=== PATIENT | female | born 1990 | race Caucasian/White ===

== ENCOUNTER 2021-01-03 22:28 | Inpatient (IN) | payer OTHER ==
[2021-01-03] MEDS ORDERED: SODIUM CHLORIDE 0.9% 2,000 ML IV STA (22:32)
--- NOTE | 2021-01-03 22:35 | ED ---
Overdose HPI - General Stated Complaint: Unresponsive Time Seen by Provider: 01/03/21 22:31 Source: RN notes reviewed, old records reviewed - History of Present Illness Complaint: intentional overdose -: hour(s) Intent: suicide attempt, want to go to sleep, want to escape How Overdose Was Discovered: family/friend present at time Context: Intentional Overdose: drug/ETOH problems Associated Symptoms: depression Treatments Prior to Arrival: none - Related Data Home Medications Medication Instructions Recorded Confirmed No Known Home Medications 01/04/21 01/04/21 Allergies Allergy/AdvReac Type Severity Reaction Status Date / Time No Known Allergies Allergy Verified 07/16/14 09:07 Review of Systems ROS Statement: Those systems with pertinent positive or pertinent negative responses have been documented in the HPI. ROS Other: All systems not noted in ROS Statement are negative. Past Medical History Past Medical History: No Reported History History of Any Multi-Drug Resistant Organisms: None Reported Past Surgical History: Section, Tubal Ligation Past Psychological History: Depression Past Alcohol Use History: None Reported Past Drug Use History: None Reported General Exam Limitations: altered mental status, physical limitation General appearance: anxious, lethargic, in distress Head exam: Present: atraumatic, normocephalic, normal inspection Eye exam: Present: normal appearance, PERRL, EOMI. Absent: scleral icterus, conjunctival injection, periorbital swelling ENT exam: Present: normal exam, mucous membranes moist Neck exam: Present: normal inspection. Absent: tenderness, meningismus, lymphadenopathy Respiratory exam: Present: normal lung sounds bilaterally. Absent: respiratory distress, wheezes, rales, rhonchi, stridor Cardiovascular Exam: Present: normal rhythm, tachycardia, normal heart sounds. Absent: systolic murmur, diastolic murmur, rubs, gallop, clicks GI/Abdominal exam: Present: soft, normal bowel sounds. Absent: distended, tenderness, guarding, rebound, rigid Extremities exam: Present: normal inspection, full ROM, normal capillary refill. Absent: tenderness, pedal edema, joint swelling, calf tenderness Back exam: Present: normal inspection Neurological exam: Present: alert, oriented X3, CN II-XII intact Psychiatric exam: Present: normal affect, normal mood Skin exam: Present: warm, dry, intact, normal color. Absent: rash Course Vital Signs 01/03/21 01/03/21 01/04/21 22:29 23:30 01:08 Temperature 97.6 F 97.5 F L Pulse Rate 137 H 105 H 115 H Respiratory 18 23 10 L Rate Blood Pressure 139/80 135/85 132/87 O2 Sat by Pulse 96 98 99 Oximetry 01/04/21 01:38 Temperature 97.5 F L Pulse Rate 115 H Respiratory 16 Rate Blood Pressure 137/99 O2 Sat by Pulse 98 Oximetry - Reevaluation(s) Reevaluation #1: 01/04/21 Medical record is reviewed Patient symptoms are persistent throughout ER stay Patient is remains in significant distress will need to be admitted for monitoring Conditional mild improvement in arouse ability prior to bed placement Patient informed results questions answered Medical Decision Making - Lab Data Result diagrams: 01/04/21 18:49 01/04/21 18:49 Lab Results 01/03/21 01/03/21 01/03/21 Range/Units 22:38 22:38 22:38 WBC 12.7 H (3.8-10.6) k/uL RBC 4.76 (3.80-5.40) m/uL Hgb 14.7 (11.4-16.0) gm/dL Hct 43.9 (34.0-46.0) % MCV 92.3 (80.0-100.0) fL MCH 30.9 (25.0-35.0) pg MCHC 33.5 (31.0-37.0) g/dL RDW 12.3 (11.5-15.5) % Plt Count 374 (150-450) k/uL MPV 9.0 Neutrophils % 64 % Lymphocytes % 27 % Monocytes % 3 % Eosinophils % 3 % Basophils % 0 % Neutrophils # 8.1 H (1.3-7.7) k/uL Lymphocytes # 3.5 (1.0-4.8) k/uL Monocytes # 0.4 (0-1.0) k/uL Eosinophils # 0.4 (0-0.7) k/uL Basophils # 0.1 (0-0.2) k/uL VBG pH (7.31-7.41) VBG pCO2 (37-51) mmHg VBG HCO3 (24-28) mmol/L Sodium (137-145) mmol/L Potassium (3.5-5.1) mmol/L Chloride (98-107) mmol/L Carbon Dioxide (22-30) mmol/L Anion Gap mmol/L BUN (7-17) mg/dL Creatinine (0.52-1.04) mg/dL Est GFR (CKD-EPI)AfAm (>60 ml/min/1.73 sqM) Est GFR (CKD-EPI)NonAf (>60 ml/min/1.73 sqM) Glucose (74-99) mg/dL Lactic Ac Sepsis Rflx Plasma Lactic Acid Khoi (0.7-2.0) mmol/L Calcium (8.4-10.2) mg/dL Phosphorus (2.5-4.5) mg/dL Magnesium (1.6-2.3) mg/dL Total Bilirubin (0.2-1.3) mg/dL AST (14-36) U/L ALT (4-34) U/L Alkaline Phosphatase (38-126) U/L Ammonia (<30) umol/L Creatine Kinase (30-135) U/L Troponin I (0.000-0.034) ng/mL Total Protein (6.3-8.2) g/dL Albumin (3.5-5.0) g/dL Lipase (23-300) U/L Urine HCG, Qual Not Detected (Not Detectd) Salicylates mg/dL Urine Opiates Screen Not Detected (NotDetected) Ur Oxycodone Screen Not Detected (NotDetected) Urine Methadone Screen Not Detected (NotDetected) Ur Propoxyphene Screen Not Detected (NotDetected) Acetaminophen ug/mL Ur Barbiturates Screen Not Detected (NotDetected) U Tricyclic Antidepress Detected H (NotDetected) Ur Phencyclidine Scrn Not Detected (NotDetected) Ur Amphetamines Screen Detected H (NotDetected) U Methamphetamines Scrn Not Detected (NotDetected) U Benzodiazepines Scrn Not Detected (NotDetected) Urine Cocaine Screen Not Detected (NotDetected) U Marijuana (THC) Screen Not Detected (NotDetected) Serum Alcohol mg/dL 01/03/21 01/03/21 01/03/21 Range/Units 22:38 22:38 22:38 WBC (3.8-10.6) k/uL RBC (3.80-5.40) m/uL Hgb (11.4-16.0) gm/dL Hct (34.0-46.0) % MCV (80.0-100.0) fL MCH (25.0-35.0) pg MCHC (31.0-37.0) g/dL RDW (11.5-15.5) % Plt Count (150-450) k/uL MPV Neutrophils % % Lymphocytes % % Monocytes % % Eosinophils % % Basophils % % Neutrophils # (1.3-7.7) k/uL Lymphocytes # (1.0-4.8) k/uL Monocytes # (0-1.0) k/uL Eosinophils # (0-0.7) k/uL Basophils # (0-0.2) k/uL VBG pH (7.31-7.41) VBG pCO2 (37-51) mmHg VBG HCO3 (24-28) mmol/L Sodium 140 (137-145) mmol/L Potassium 3.9 (3.5-5.1) mmol/L Chloride 107 (98-107) mmol/L Carbon Dioxide 12 L (22-30) mmol/L Anion Gap 21 mmol/L BUN 8 (7-17) mg/dL Creatinine 0.69 (0.52-1.04) mg/dL Est GFR (CKD-EPI)AfAm >90 (>60 ml/min/1.73 sqM) Est GFR (CKD-EPI)NonAf >90 (>60 ml/min/1.73 sqM) Glucose 94 (74-99) mg/dL Lactic Ac Sepsis Rflx Plasma Lactic Acid Khoi 10.6 H* (0.7-2.0) mmol/L Calcium 9.6 (8.4-10.2) mg/dL Phosphorus 2.4 L (2.5-4.5) mg/dL Magnesium 2.3 (1.6-2.3) mg/dL Total Bilirubin 0.2 (0.2-1.3) mg/dL AST 25 (14-36) U/L ALT 21 (4-34) U/L Alkaline Phosphatase 54 (38-126) U/L Ammonia 17 (<30) umol/L Creatine Kinase 105 (30-135) U/L Troponin I <0.012 (0.000-0.034) ng/mL Total Protein 7.8 (6.3-8.2) g/dL Albumin 5.0 (3.5-5.0) g/dL Lipase 40 (23-300) U/L Urine HCG, Qual (Not Detectd) Salicylates <1.0 mg/dL Urine Opiates Screen (NotDetected) Ur Oxycodone Screen (NotDetected) Urine Methadone Screen (NotDetected) Ur Propoxyphene Screen (NotDetected) Acetaminophen <10.0 ug/mL Ur Barbiturates Screen (NotDetected) U Tricyclic Antidepress (NotDetected) Ur Phencyclidine Scrn (NotDetected) Ur Amphetamines Screen (NotDetected) U Methamphetamines Scrn (NotDetected) U Benzodiazepines Scrn (NotDetected) Urine Cocaine Screen (NotDetected) U Marijuana (THC) Screen (NotDetected) Serum Alcohol <10 mg/dL 01/03/21 01/03/21 Range/Units 23:04 23:24 WBC (3.8-10.6) k/uL RBC (3.80-5.40) m/uL Hgb (11.4-16.0) gm/dL Hct (34.0-46.0) % MCV (80.0-100.0) fL MCH (25.0-35.0) pg MCHC (31.0-37.0) g/dL RDW (11.5-15.5) % Plt Count (150-450) k/uL MPV Neutrophils % % Lymphocytes % % Monocytes % % Eosinophils % % Basophils % % Neutrophils # (1.3-7.7) k/uL Lymphocytes # (1.0-4.8) k/uL Monocytes # (0-1.0) k/uL Eosinophils # (0-0.7) k/uL Basophils # (0-0.2) k/uL VBG pH 7.25 L (7.31-7.41) VBG pCO2 34 L (37-51) mmHg VBG HCO3 14 L (24-28) mmol/L Sodium (137-145) mmol/L Potassium (3.5-5.1) mmol/L Chloride (98-107) mmol/L Carbon Dioxide (22-30) mmol/L Anion Gap mmol/L BUN (7-17) mg/dL Creatinine (0.52-1.04) mg/dL Est GFR (CKD-EPI)AfAm (>60 ml/min/1.73 sqM) Est GFR (CKD-EPI)NonAf (>60 ml/min/1.73 sqM) Glucose (74-99) mg/dL Lactic Ac Sepsis Rflx Y Plasma Lactic Acid Khoi (0.7-2.0) mmol/L Calcium (8.4-10.2) mg/dL Phosphorus (2.5-4.5) mg/dL Magnesium (1.6-2.3) mg/dL Total Bilirubin (0.2-1.3) mg/dL AST (14-36) U/L ALT (4-34) U/L Alkaline Phosphatase (38-126) U/L Ammonia (<30) umol/L Creatine Kinase (30-135) U/L Troponin I (0.000-0.034) ng/mL Total Protein (6.3-8.2) g/dL Albumin (3.5-5.0) g/dL Lipase (23-300) U/L Urine HCG, Qual (Not Detectd) Salicylates mg/dL Urine Opiates Screen (NotDetected) Ur Oxycodone Screen (NotDetected) Urine Methadone Screen (NotDetected) Ur Propoxyphene Screen (NotDetected) Acetaminophen ug/mL Ur Barbiturates Screen (NotDetected) U Tricyclic Antidepress (NotDetected) Ur Phencyclidine Scrn (NotDetected) Ur Amphetamines Screen (NotDetected) U Methamphetamines Scrn (NotDetected) U Benzodiazepines Scrn (NotDetected) Urine Cocaine Screen (NotDetected) U Marijuana (THC) Screen (NotDetected) Serum Alcohol mg/dL - EKG Data -: EKG Interpreted by Me (EKG shows sinus tachycardia 134 IN 140 QRS 80 QTc 567) Critical Care Time Critical Care Time: Yes Total Critical Care Time: 31 Disposition Clinical Impression: Drug overdose, Suicide attempt by multiple drug overdose, Anticholinergic drug overdose Disposition: ADMITTED IP TO THIS [facility] Condition: Serious Is patient prescribed a controlled substance at d/c from ED?: No
[2021-01-03 22:51] LABS: Basophils # (A) 0.1 k/uL (0-0.2); Basophils % (A) 0 %; Eosinophils # (A) 0.4 k/uL (0-0.7); Eosinophils % (A) 3 %; HCT 43.9 % (34.0-46.0); HGB 14.7 gm/dL (11.4-16.0); Lymphocytes # (A) 3.5 k/uL (1.0-4.8); Lymphocytes % (A) 27 %; MCH 30.9 pg (25.0-35.0); MCHC 33.5 g/dL (31.0-37.0); MCV 92.3 fL (80.0-100.0); Monocytes # (A) 0.4 k/uL (0-1.0); Monocytes % (A) 3 %; Neutrophils # (A) 8.1 k/uL (1.3-7.7); Neutrophils % (A) 64 %; Platelet Count 374 k/uL (150-450); RBC 4.76 m/uL (3.80-5.40); RDW 12.3 % (11.5-15.5); WBC 12.7 k/uL (3.8-10.6)
[2021-01-03 23:10] LABS: ALT 21 U/L (4-34); AST 25 U/L (14-36); Acetaminophen <10.0 ug/mL; African American GFR (CKD) >90 (>60 ml/min/1.73 sqM); Alcohol <10 mg/dL; Alkaline Phosphatase 54 U/L (38-126); Anion Gap 21 mmol/L; Blood Urea Nitrogen 8 mg/dL (7-17); Calcium 9.6 mg/dL (8.4-10.2); Carbon Dioxide 12 mmol/L (22-30); Chloride 107 mmol/L (98-107); Creatine Kinase 105 U/L (30-135); Glucose 94 mg/dL (74-99); Lipase 40 U/L (23-300); Magnesium 2.3 mg/dL (1.6-2.3); Non-African American GFR(CKD) >90 (>60 ml/min/1.73 sqM); Phosphorus 2.4 mg/dL (2.5-4.5); Potassium 3.9 mmol/L (3.5-5.1); Salicylate <1.0 mg/dL; Sodium 140 mmol/L (137-145); Total Bilirubin 0.2 mg/dL (0.2-1.3); Total Protein 7.8 g/dL (6.3-8.2)
[2021-01-03 23:11] LABS: VBG PH 7.25 (7.31-7.41)
[2021-01-03 23:23] LABS: Lactic Acid, Venous 10.6 mmol/L (0.7-2.0)
[2021-01-03 23:24] LABS: Amphetamine Screen,Urine Detected (NotDetected); Barbiturate Screen,Urine Not Detected (NotDetected); Benzodiazepines Screen,Urine Not Detected (NotDetected); Cocaine Screen,Urine Not Detected (NotDetected); Methadone Screen, Urine Not Detected (NotDetected); Opiate Screen,Urine Not Detected (NotDetected); Oxycodone Screen, Urine Not Detected (NotDetected); Phencyclidine Screen,Urine Not Detected (NotDetected); Tricyclic Antidepressant,Urine Detected (NotDetected); Urn Cannabinoid Scrn Not Detected (NotDetected)
[2021-01-04] MEDS ORDERED: NALOXONE 0.4 MG/ML 1 ML VIAL IV PRN (00:10)
[2021-01-04] MEDS ORDERED: SODIUM BICARB 8.4% 50 ML SYR (1 MEQ/ML) IV STA ×2 (00:14)
[2021-01-04] MEDS ORDERED: POTASSIUM CHLORIDE 20 MEQ in WATER FOR INJECTION 1 100ML.BAG IVPB STA (00:15)
[2021-01-04] MEDS: SODIUM PHOSPHATE 10 MMOL in SODIUM CHLORIDE 0.9% 250 ML IVPB SCH ×3 (00:41→05:45)
[2021-01-04] MEDS: SODIUM CHLORIDE 0.9% 1,000 ML IV SCH ×3 (00:44→16:57)
[2021-01-04] MEDS ORDERED: LORazepam 2 MG/ML INJ IV PRN (00:52)
--- NOTE | 2021-01-04 13:12 | HP ---
HISTORY AND PHYSICAL CHIEF COMPLAINT: Drug ingestion and overdose with depression and suicidal intent. HISTORY OF PRESENT ILLNESS: This is the first known admission for this 30-year-old white female. She has not been in the office since 2013. She apparently overdosed on Unisom. She stated that she is chronically depressed and wanted to . REVIEW OF SYSTEMS: She denies any headaches, visual changes, chest pain, cough, shortness of breath, heart disease, hypertension, abdominal pain, nausea, vomiting, diarrhea, melena, hematochezia, renal failure, frequency, urgency and dysuria, nocturia, incontinence, diabetes, etc. Past medical history, family history, personal and social histories are otherwise unremarkable and noncontributory. She is apparently not taking any medication. She is not allergic to any. She apparently is not a smoker or drinker. PHYSICAL EXAMINATION: Blood pressure is 124/86, pulse 60, respirations 16. She is afebrile. In general, she appeared to be slightly overweight. She was slightly lethargic, but oriented. Skin color is normal. Skin is warm, dry. Head, ears, eyes, nose, mouth and throat were normal except for dilated pupils. Neck is supple. Chest is clear. Cardiac exam is normal. Abdomen is soft, nontender. Extremities: Normal. Neurologically she is intact. IMPRESSION: She is admitted to the hospital with diagnoses: 1. Overdose of Unisom. 2. Major depression. 3. Suicidal personality. PLAN: 1. Bedrest. 2. IV fluids. 3. Suicide precautions. 4. Psych consult. MMODL / IJN: [id number] /
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
[2021-01-04 19:19] LABS: HCT 35.5 % (34.0-46.0); HGB 12.4 gm/dL (11.4-16.0); MCHC 34.9 g/dL (31.0-37.0); MCV 91.6 fL (80.0-100.0); Mean Platelet Volume 9.1; Platelet Count 244 k/uL (150-450); RBC 3.87 m/uL (3.80-5.40); RDW 12.4 % (11.5-15.5); WBC 13.7 k/uL (3.8-10.6)
[2021-01-04 19:23] LABS: ALT 14 U/L (4-34); AST 16 U/L (14-36); African American GFR (CKD) >90 (>60 ml/min/1.73 sqM); Albumin 3.4 g/dL (3.5-5.0); Alkaline Phosphatase 45 U/L (38-126); Anion Gap 7 mmol/L; Blood Urea Nitrogen 3 mg/dL (7-17); Calcium 8.2 mg/dL (8.4-10.2); Carbon Dioxide 21 mmol/L (22-30); Chloride 111 mmol/L (98-107); Glucose 65 mg/dL (74-99); Magnesium 2.1 mg/dL (1.6-2.3); Non-African American GFR(CKD) >90 (>60 ml/min/1.73 sqM); Potassium 3.5 mmol/L (3.5-5.1); Sodium 139 mmol/L (137-145); Total Bilirubin 0.2 mg/dL (0.2-1.3); Total Protein 5.8 g/dL (6.3-8.2)
[2021-01-04] MEDS: POTASSIUM CHLORIDE ER 20 MEQ TAB.ER PO SCH ×2 (21:56→23:48)
[2021-01-04] MEDS: CALCIUM CARBONATE 500 MG CHEWABLE PO SCH (21:56)
[2021-01-05] MEDS: SODIUM CHLORIDE 0.9% 1,000 ML IV SCH ×3 (02:11→16:24)
[2021-01-05 08:04] LABS: Basophils # (A) 0.1 k/uL (0-0.2); Basophils % (A) 0 %; Eosinophils # (A) 0.1 k/uL (0-0.7); Eosinophils % (A) 1 %; HCT 36.6 % (34.0-46.0); HGB 12.1 gm/dL (11.4-16.0); Lymphocytes # (A) 1.9 k/uL (1.0-4.8); Lymphocytes % (A) 15 %; MCH 30.7 pg (25.0-35.0); MCV 92.9 fL (80.0-100.0); Mean Platelet Volume 9.4; Monocytes # (A) 0.6 k/uL (0-1.0); Monocytes % (A) 5 %; Neutrophils % (A) 79 %; Platelet Count 242 k/uL (150-450); RBC 3.93 m/uL (3.80-5.40); RDW 12.5 % (11.5-15.5); WBC 12.7 k/uL (3.8-10.6)
[2021-01-05 08:31] LABS: ALT 14 U/L (4-34); AST 16 U/L (14-36); African American GFR (CKD) >90 (>60 ml/min/1.73 sqM); Albumin 3.4 g/dL (3.5-5.0); Alkaline Phosphatase 50 U/L (38-126); Anion Gap 11 mmol/L; Blood Urea Nitrogen 6 mg/dL (7-17); Calcium 8.6 mg/dL (8.4-10.2); Carbon Dioxide 17 mmol/L (22-30); Chloride 110 mmol/L (98-107); Magnesium 1.9 mg/dL (1.6-2.3); Non-African American GFR(CKD) >90 (>60 ml/min/1.73 sqM); Sodium 138 mmol/L (137-145); Total Bilirubin 0.3 mg/dL (0.2-1.3); Total Protein 5.9 g/dL (6.3-8.2)
[2021-01-05 09:16] LABS: Glucose 47 mg/dL (74-99)
[2021-01-05] MEDS: CALCIUM CARBONATE 500 MG CHEWABLE PO SCH ×2 (09:20→20:18)
[2021-01-05 09:21] LABS: Glucose,Whole Blood 114 mg/dL (75-99)
--- NOTE | 2021-01-05 12:38 | P.PN ---
Progress Note - Text Progress Note Date: 01/05/21 Interval History: Patient was seen resting in bed with a 1:1 sitter present. She was agreeable to be interviewed. The patient continues to report that she does not recall the events leading up to her overdose but does acknowledge that she has been feeling increasing depressed in the weeks prior to this incident. She is currently not endorsing any suicidal or homicidal ideation, intention, and/or plan. She is not reporting any auditory or visual hallucinations. She denies any paranoia or other delusions. She reports no issues regarding her sleep or appetite. She reports no current chest pain, shortness of breath or palpitations. She is agreeable at this time to start Zoloft for management of PTSD/depression/anxiety. Mental Status Exam: General Appearance: Patient appears to be stated age is alert, directable, and cooperative. Behavior: Patient is calmly lying in bed without any agitated behavior. Good eye contact. Speech: Patient's speech is fluent and nonpressured. Non spontaneous, monotone, and low in volume. Mood/Affect: Mood is "doing okay." Affect is blunted, withdrawn. Suicidality/Homicidality: Patient denies having any suicidal or homicidal ideation intent or plan. Perceptions: Patient denies any visual hallucinations and denies any auditory hallucinations Though content/process: There is no evidence of any delusional thought content and thought process is linear and goal-directed. Memory and concentration: AOX3, grossly intact for the purposes of this session Judgment and insight: Improving mildly Vital Signs Temp 98.2 F 01/05/21 08:37 Pulse 89 01/05/21 08:37 Resp 16 01/05/21 08:37 BP 112/81 01/05/21 12:32 Pulse Ox 96 01/05/21 08:37 Intake & Output 01/04/21 01/05/21 01/05/21 18:59 06:59 18:59 Output Total 1450 1700 1999 Balance -1450 -1700 Weight 79.379 kg 81.5 kg Output: Urine 1450 1700 1999 Uretheral (Aldrich) 1999 Other: Voiding Method Indwelling Catheter Indwelling Catheter Indwelling Catheter # Voids 1 Laboratory Results - Last 24 Hours 01/04/21 01/04/21 01/05/21 18:49 18:49 07:13 WBC 13.7 H 12.7 H RBC 3.87 3.93 Hgb 12.4 12.1 Hct 35.5 36.6 MCV 91.6 92.9 MCH 32.0 30.7 MCHC 34.9 33.0 RDW 12.4 12.5 Plt Count 244 242 MPV 9.1 9.4 Neutrophils % 79 Lymphocytes % 15 Monocytes % 5 Eosinophils % 1 Basophils % 0 Neutrophils # 10.0 H Lymphocytes # 1.9 Monocytes # 0.6 Eosinophils # 0.1 Basophils # 0.1 Sodium 139 Potassium 3.5 Chloride 111 H Carbon Dioxide 21 L Anion Gap 7 BUN 3 L Creatinine 0.57 Est GFR (CKD-EPI)AfAm >90 Est GFR (CKD-EPI)NonAf >90 Glucose 65 L POC Glucose (mg/dL) POC Glu Fiberglass Model Maker ID Calcium 8.2 L Magnesium 2.1 Total Bilirubin 0.2 AST 16 ALT 14 Alkaline Phosphatase 45 Total Protein 5.8 L Albumin 3.4 L 01/05/21 01/05/21 07:13 09:19 WBC RBC Hgb Hct MCV MCH MCHC RDW Plt Count MPV Neutrophils % Lymphocytes % Monocytes % Eosinophils % Basophils % Neutrophils # Lymphocytes # Monocytes # Eosinophils # Basophils # Sodium 138 Potassium 4.0 Chloride 110 H Carbon Dioxide 17 L Anion Gap 11 BUN 6 L Creatinine 0.54 Est GFR (CKD-EPI)AfAm >90 Est GFR (CKD-EPI)NonAf >90 Glucose 47 L* POC Glucose (mg/dL) 114 H POC Glu Fib[employer] Model Maker ID Shaina [place] Calcium 8.6 Magnesium 1.9 Total Bilirubin 0.3 AST 16 ALT 14 Alkaline Phosphatase 50 Total Protein 5.9 L Albumin 3.4 L Assessment Bipolar Disorder, unspecified Posttraumatic Stress Disorder Plan: -At this time patient DOES meet criteria for inpatient psychiatric admission due to her intentional overdose in the context of worsening depression. She presents with imminent risk of harm to self. -EKG reviewed - NSR, QTc of 473 ms -Medications: Start Zoloft 25 mg at bedtime for depression/anxiety/PTSD -When medically stable, patient is eligible for transfer to a psychiatric bed when available. - Cannot leave AMA at this time. Patient will need a petition and certification if attempting to leave AMA. -Continue 1:1 Sitter for safety - Psychiatry will sign off at this time and evaluate once transferred to our unit. Thank you for this consult. Please reconsult us if necessary.
[2021-01-05] MEDS ORDERED: Magnesium Replacement Protocol 1 EACH MISC MISCELLANE PRN (17:34)
[2021-01-05] MEDS: MAGNESIUM SULFATE-D5W PMX 1 GM in DEXTROSE/WATER 1 100ML.BAG IVPB SCH ×2 (18:10→19:15)
--- NOTE | 2021-01-05 19:46 | PN ---
PROGRESS NOTE CHIEF COMPLAINT: Overdose. HISTORY OF PRESENT ILLNESS: This lady is stable and has been seen by Psychiatry and they will be taking her on the service once she is cleared. PHYSICAL EXAMINATION: Chest is clear. Cardiac exam is normal. Abdomen is soft, nontender. Potassium and calcium were slightly low. IMPRESSION: 1. Status post overdose. 2. Suicidal personality. 3. Hypokalemia. 4. Hypocalcemia. PLAN: Probably discharge to the psych service tomorrow. MMODL / IJN: [id number] /
[2021-01-05] MEDS: SERTRALINE 25 MG TAB PO SCH (20:18)
[2021-01-06] MEDS: SODIUM CHLORIDE 0.9% 1,000 ML IV SCH ×2 (08:17→13:27)
[2021-01-06 09:25] LABS: ALT 13 U/L (4-34); AST 17 U/L (14-36); African American GFR (CKD) >90 (>60 ml/min/1.73 sqM); Albumin 3.7 g/dL (3.5-5.0); Alkaline Phosphatase 49 U/L (38-126); Anion Gap 9 mmol/L; Blood Urea Nitrogen 8 mg/dL (7-17); Carbon Dioxide 20 mmol/L (22-30); Chloride 108 mmol/L (98-107); Glucose 92 mg/dL (74-99); Non-African American GFR(CKD) >90 (>60 ml/min/1.73 sqM); Potassium 4.2 mmol/L (3.5-5.1); Sodium 137 mmol/L (137-145); Total Bilirubin 0.2 mg/dL (0.2-1.3); Total Protein 6.1 g/dL (6.3-8.2)
[2021-01-06] MEDS: CALCIUM CARBONATE 500 MG CHEWABLE PO SCH ×2 (09:35→20:42)
--- NOTE | 2021-01-06 18:32 | PN ---
PROGRESS NOTE DATE OF SERVICE: 01/06/2021 CHIEF COMPLAINT: Overdose, depression. HISTORY OF PRESENT ILLNESS: This lady is still having difficulty with metabolic parameters. Magnesium has been low, as well as calcium and potassium. PHYSICAL EXAMINATION: She has a very flat and depressed affect. Chest is clear. Cardiac exam is normal. Abdomen is soft, nontender. IMPRESSION: 1. Drug ingestion overdose. 2. Depression. 3. Suicidal personality. PLAN: Once she is stable, she will be moved to the psych unit. MMODL / IJN: [id number] /
[2021-01-06] MEDS: SERTRALINE 25 MG TAB PO SCH (20:42)
[2021-01-07] MEDS: CALCIUM CARBONATE 500 MG CHEWABLE PO SCH (09:28)
[2021-01-07 09:30] VITALS: RESP 20
--- NOTE | 2021-01-07 13:27 | DS ---
DISCHARGE SUMMARY CHIEF COMPLAINT: Overdose, depression and suicidal personality. HISTORY OF PRESENT ILLNESS AND PHYSICAL EXAMINATION: Details of this lady's and physical can be found in the initial workup. LABORATORY STUDIES: While she was in the hospital, she had laboratory studies, details of which can be found in the laboratory section of her chart. COURSE IN THE HOSPITAL: After admission, she was placed on bedrest and started on intravenous fluids and placed on suicide precautions. She was monitored and followed by Poison Control who made several recommendations. She remained stable without any medical problems or issues and was felt to be medically cleared to go to the psych unit on January 07. FINAL DIAGNOSES: 1. Drug ingestion overdose. 2. Depression. 3. Suicidal personality. OPERATIONS: None. CONSULTATION: Psychiatry. She is improved MMODL / IJN: [id number] /
[2021-01-07 16:44] VITALS: BP 125/76; PULSE 76; TEMP 98.1
== END 2021-01-07 16:52 | DRG 918 ==
LOC: EC 22:28 → 6NMEDSUR 01-04 00:11 → OBSVTOIN 01-04 00:11 → 5NMEDONC 01-04 00:35 → 3SCARD 01-04 00:42
PROVIDERS: ADMIT Family Medicine; ATTEND Family Medicine
DX: T44 Poisoning by, adverse effect of and underdosing of drugs primarily affecting the autonomic nervous system (principal); T45.0X2A Poisoning by antiallergic and antiemetic drugs, intentional self-harm, initial encounter; Z20.822 Contact with and (suspected) exposure to COVID-19; E83.51 Hypocalcemia; E87.6 Hypokalemia; F31.9 Bipolar disorder, unspecified; F43.10 Post-traumatic stress disorder, unspecified; Z98.51 Tubal ligation status
CPT/HCPCS: 36415; 80053; 80143; 80179; 80306; 80320; 81025; 82140; 82550; 82803; 83605; 83690; 83735; 84100; 84484; 85025; 85027; 93005; 99291

== ENCOUNTER 2021-01-07 16:29 | Inpatient (IN) | payer MEDICAID ==
[2021-01-07] MEDS ORDERED: MAGNESIUM HYDROXIDE 2,400 MG/10 ML CUP PO PRN (17:02)
[2021-01-07] MEDS ORDERED: MAG HYDROX/AL HYDROX/SIMETH 30 ML CUP PO PRN (17:02)
[2021-01-07] MEDS ORDERED: LORazepam 1 MG TAB PO PRN (17:02)
[2021-01-07] MEDS ORDERED: ACETAMINOPHEN TAB 325 MG TAB PO PRN (17:02)
[2021-01-07] MEDS ORDERED: LORazepam 2 MG/ML INJ IM PRN (17:06)
[2021-01-07] MEDS ORDERED: HALOPERIDOL LACTATE 5 MG/ML 1 ML VIAL IM PRN (17:07)
[2021-01-07] MEDS ORDERED: SERTRALINE 25 MG TAB PO SCH (21:00)
[2021-01-08] MEDS ORDERED: SERTRALINE 25 MG TAB PO SCH (09:00)
[2021-01-08] MEDS ORDERED: SERTRALINE 25 MG TAB PO STA (10:17)
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
[2021-01-08] MEDS ORDERED: SERTRALINE 50 MG TAB PO SCH (21:00)
[2021-01-08] MEDS ORDERED: traZODone HCL 50 MG TAB PO SCH (21:00)
[2021-01-09] MEDS: SERTRALINE 50 MG TAB PO SCH (08:51)
[2021-01-09] MEDS: traZODone HCL 100 MG TAB PO PRN (21:16)
[2021-01-09] MEDS: MELATONIN 5 MG TABLET PO SCH (21:16)
--- NOTE | 2021-01-10 00:28 | P.PN ---
Progress Note - Text Progress Note Date: 01/09/21 Subjective: Patient was seen today as a cross coverage for Dr. Escobar. The patient was evaluated, chart reviewed, case discussed with the treatment team. Patient reports interrupted fsleep last night, and appetite was reported as "fair". Patient has been going to groups and other unit activities. The patient is compliant with her medications and denies any adverse reactions. Patient reports generally feels better and minimizes depression symptoms. She denies feeling hopeless or suicidal. Reports increased anxiety with racing thoughts mainly worried about her house and her children. Denies any hallucinations, paranoid ideation, or delusions. No manic symptoms reported or noticed. Objective: Vitals has been reviewed. Mental status examination; Appearance: The patient appears stated age, adequately groomed and dressed, no specific features. Gait/posture: Normal gait, Normal arm swinging: No abnormal movements. Attitude and behavior: engaged, cooperative, eye contact. Motor activity: Normal psychomotor activity Speech: Normal rate, tone. Mood: Anxious Affect: Constricted Thought form: goal-directed, linear, coherent. Thought content: Non-delusional, denies suicidal thoughts, denies homicidal thoughts, denies intentions or plans. Perception: Denies any auditory or visual hallucinations Attention: No impairment. Orientation: Patient patient was fully oriented to time place person and situation. Insight: Patient has fair insight about her psychiatric disorder. Judgment: Patient has fair judgment about her psychiatric treatment. Assessment: Major depressive disorder, recurrent, severe Rule out Bipolar disorder Posttraumatic stress disorder Plan: Continue inpatient level of care due to need for further monitoring and stabilization Precautions: Continue 15 minutes check for safety. Consider medical consultation if any acute medical issues arise. Provide the patient individual, group therapy, substance use disorder counseling to give better insight and learn coping skills. Medications: Zoloft for depression and anxiety symptoms. Continue trazodone for depression and to help with insomnia was increasing the dose 100 mg at bedtime. Start melatonin at bedtime to help with insomnia. Continue as needed medications for psychiatric emergencies including psychosis, agitation and anxiety. Continue non-psychiatric medications for medical conditions as recommended by the medical team. Discharge patient to OUTPATIENT services upon a stabilization
[2021-01-10] MEDS: SERTRALINE 50 MG TAB PO SCH (08:48)
--- NOTE | 2021-01-10 19:28 | CONS ---
CONSULTATION CHIEF COMPLAINT: Major depression and overdose, suicidal intent. HISTORY OF PRESENT ILLNESS: Details of this lady's history can be found in the documents accompanying her from the medical floor. She overdosed and required inpatient management for several days. She was depressed and attempting suicide. REVIEW OF SYSTEMS: She is currently comfortable with no headaches, chest pain, shortness of breath, abdominal pain, or other complaints. Past medical history, family history and personal and social histories can be found in documents from her medical admission. PHYSICAL EXAMINATION: Blood pressure is 116/64 with a pulse of 70, respirations of 15. She is afebrile. GENERAL: She appeared to be in no acute distress. SKIN color is normal. Skin is warm and dry. Lymph nodes are not enlarged. HEAD, ears, eyes, nose, mouth and throat were normal. CHEST is clear. CARDIAC exam is normal. ABDOMEN is soft, nontender. EXTREMITIES are normal. IMPRESSION: Major depression post overdose with suicidal thoughts. RECOMMENDATIONS: None. MMODL / IJN: [id number] /
[2021-01-10] MEDS: MELATONIN 5 MG TABLET PO SCH (21:44)
[2021-01-10] MEDS: traZODone HCL 100 MG TAB PO PRN (21:44)
--- NOTE | 2021-01-10 23:39 | P.PN ---
Progress Note - Text Progress Note Date: 01/10/21 Subjective: Patient was seen today as a cross coverage for Dr. Escobar. The patient was evaluated, chart reviewed, case discussed with the treatment team. Patient reports continued to feel stable emotionally and he denies any symptoms of depression, anxiety, or mood swings. She denies any manic or psychotic symptoms. Patient reports better sleep last night and continued to have good appetite. She continues to take her psych medications and denies side effects. Patient attends groups and other unit activities. Objective: Vitals has been reviewed. Mental status examination; Appearance: The patient appears stated age, adequately groomed and dressed, no specific features. Gait/posture: Normal gait, Normal arm swinging: No abnormal movements. Attitude and behavior: engaged, cooperative, eye contact. Motor activity: Normal psychomotor activity Speech: Normal rate, tone. Mood: "Fine" Affect: Normal range Thought form: goal-directed, linear, coherent. Thought content: Non-delusional, denies suicidal thoughts, denies homicidal thoughts, denies intentions or plans. Perception: Denies any auditory or visual hallucinations Attention: No impairment. Orientation: Patient patient was fully oriented to time place person and situation. Insight: Patient has fair insight about her psychiatric disorder. Judgment: Patient has fair judgment about her psychiatric treatment. Assessment: Major depressive disorder, recurrent, severe Rule out Bipolar disorder Posttraumatic stress disorder Plan: Continue inpatient level of care due to need for further monitoring and stabilization Precautions: Continue 15 minutes check for safety. Consider medical consultation if any acute medical issues arise. Provide the patient individual, group therapy, substance use disorder counseling to give better insight and learn coping skills. Medications: Kati Zoloft for depression and anxiety symptoms. Continue trazodone 100 mg at bedtime for depression and to help with insomnia. Evi melatonin at bedtime to help with insomnia. Continue as needed medications for psychiatric emergencies including psychosis, agitation and anxiety. Continue non-psychiatric medications for medical conditions as recommended by the medical team. Discharge patient to OUTPATIENT services upon a stabilization
[2021-01-11 07:17] VITALS: BP 124/64; PULSE 74; RESP 14; TEMP 98.4
[2021-01-11] MEDS: SERTRALINE 50 MG TAB PO SCH (08:43)
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
== END 2021-01-11 11:40 | disposition home or self-care (01) | DRG 885 ==
LOC: 3MHU 17:01
PROVIDERS: ADMIT Psychiatry & Neurology Psychiatry; ATTEND Psychiatry & Neurology Psychiatry
DX: F33.2 Major depressive disorder, recurrent severe without psychotic features (principal); F43.10 Post-traumatic stress disorder, unspecified; G47.00 Insomnia, unspecified; T50.902A Poisoning by unspecified drugs, medicaments and biological substances, intentional self-harm, initial encounter; Z79.899 Other long term (current) drug therapy
CPT/HCPCS: 84443